=== PATIENT | female | born 1990 | race Two or more races ===

== ENCOUNTER 2016-09-09 16:01 | Emergency (ER) | payer SELFPAY ==
[2016-09-09 18:29] LABS: ABSOLUTE NEUTROPHIL COUNT 9.6 K/mm3 (1.8-7.7); BASO % 0.2 % (0.2-1.0); EOS # 0.2 (0.0-0.5); EOS % 1.3 % (0.9-2.9); HEMATOCRIT 34.4 % (37.0-47.0); HEMOGLOBIN 11.1 gm/l (12.0-16.0); IMM NEUT # 0.1 K/mm3 (0-0.2); IMM NEUT% 0.4 % (0-1); LYMPH # 2.6 (1.0-4.8); LYMPH % 19.3 % (15-45); MEAN CELL VOLUME 87.5 fl (81.0-99.0); MEAN CORPUSCULAR HEMOGLOBIN 28.2 pg (27.0-31.0); MEAN CORPUSCULAR HGB CONC 32.3 g/dl (33.0-37.0); MEAN PLATELET VOLUME 9.9 fl (7.4-10.4); MONO # 1.1 (0.0-0.8); MONO % 8.2 % (4-12); NEUT % 70.6 % (43-75); PLATELET COUNT 332 K/mm3 (130-400); RED CELL DISTRIBUTION WIDTH 13.1 % (11.5-14.5)
--- NOTE | 2016-09-09 19:20 | US ---
EXAMINATION: Obstetrical ultrasound less than 14 weeks. CLINICAL INDICATION:8 weeks . With bleeding and cramping. Clinical estimated gestational age: 8 weeks 2 days : 2 , para 0 Technique:Transabdominal and transvaginal sonograms performed. Findings: There is no discernible gestational sac, pole, yolk sac or cardiac activity identified. Endometrium is prominent at up to 1.8 cm in thickness. It is slightly heterogeneous. Maternal adnexa: Right ovary 2.7 x 1.6 x 2.9 centimeters. There is Doppler flow Left ovary: 3.3 x 2.0 x 2.7 centimeters. There is Doppler flow Free fluid:Absent IMPRESSION: Currently no intrauterine gestation is identified. There is a mildly thickened endometrium as well. These findings are nonspecific. Early intrauterine gestation, missed , and ectopic cannot be excluded.. Continued clinical surveillance, serial serum beta hCGs and followup sonography if indicated should be considered.
[2016-09-09 20:32] LABS: URINE BILIRUBIN NEGATIVE (NEGATIVE); URINE BLOOD 4+ (NEGATIVE); URINE GLUCOSE (UA) NEGATIVE (NEGATIVE); URINE LEUKOCYTE ESTERASE TRACE (NEGATIVE); URINE NITRITE NEGATIVE (NEGATIVE); URINE PROTEIN 1+ (NEGATIVE); URINE UROBILINOGEN NORMAL (0-1 mg/dl)
[2016-09-09 20:33] LABS: URINE APPEARANCE TURBID; URINE COLOR RED
[2016-09-09 20:36] LABS: URINE RBC >100 /hpf
[2016-09-09 20:37] LABS: URINE BACTERIA RARE; URINE EPITHELIAL CELLS 0 /hpf
== END 2016-09-09 20:24 | disposition home or self-care (01) ==
LOC: ED 16:01
DX: O20.0 Threatened abortion (principal); Z3A.08 8 weeks gestation of pregnancy